=== PATIENT | male | born 1995 | race Caucasian/White ===

== ENCOUNTER 2017-07-06 14:00 | Emergency (ER) | payer OTHER ==
--- NOTE | 2017-07-06 14:06 | EDPHY ---
H & P Source: Patient Exam Limitations: No limitations Time Seen by Provider: 07/06/17 14:05 HPI/ROS: HPI: This is a 21-year-old male who presents with Chief Complaint: M1 hold Location: psych Quality: Delusions, paranoia Duration: Today Signs and Symptoms: + auditory and visual command hallucinations, no suicidal ideation with a plan, no homicidal ideation, + paranoid, + poor attention span, + labile mood Timing: Acute Severity: Moderate to severe Context: Patient presents with [facility] on M1 hold taken out by mother to became concerned today with her son's behavior as he was acting out of character, having delusions, aggressive. Patient admits to me that he is having auditory and visual hallucination, he feels like people are watching him and following him. He reports that the voices ahead will not stop unless he smokes marijuana in large amounts. He admits that he asked his mother for money today in order to obtain more marijuana and she would not give it to him so he became angry with her started shouting at her. Patient denies any previous psychiatric hospitalizations or diagnoses. Admits to smoking marijuana daily but no other recreational drug use. Modifying Factors: None Comment: ROS: see HPI Constitutional: No fever, no chills, no weight loss Eyes: No blurred vision Respiratory: No shortness of breath, no cough Cardiovascular: No chest pain Gastrointestinal: No nausea, no vomiting, no diarrhea Genitourinary: No dysuria Extremities: No myalgias Neurologic: No weakness, no numbness Skin: No rashes Hematologic: No bruising, no bleeding MEDICAL/SURGICAL/SOCIAL HISTORY: Medical history: Generally healthy. Does not take any regular medications. Surgical history: Barry teeth removal, foot surgery Social history: Lives with his mother CONSTITUTIONAL: Overweight well-appearing young adult male, awake and alert, no obvious distress HEENT: Atraumatic and normocephalic, PERRL, EOMI. Tympanic membranes clear. Oropharynx clear, no exudate and moist pink mucosa. Airway patent. No lymphadenopathy. No meningismus. Cardiovascular: Normal S1/S2, regular rate, regular rhythm, without murmur rub or gallop. PULMONARY/CHEST: Symmetrical and nontender. Clear to auscultation bilaterally. Good air movement. No accessory muscle usage. ABDOMEN: Soft, nondistended, nontender, no rebound, no guarding, no peritoneal signs, no masses or organomegaly. No CVAT. EXTREMITIES: 2/2 pulses, strength 5/5, no deformities, no clubbing, no cyanosis or edema. NEUROLOGICAL: no focal neuro deficits. GCS 15. SKIN: Warm and dry, no erythema. no rash. Good capillary refill. PSYCH: Poor eye contact, + flight of ideas, tangential disorganized thought process, poor insight and judgment, + auditory and visual command hallucinations , no suicidal ideation with a plan, no homicidal ideation, + paranoid (Erin Reeder) Constitutional: Initial Vital Signs Temperature (C) 36.7 C 07/06/17 14:00 Heart Rate 92 07/06/17 14:00 Respiratory Rate 18 07/06/17 14:00 Blood Pressure 117/87 H 07/06/17 14:00 O2 Sat (%) 99 07/06/17 14:00 O2 Delivery Mode Room Air Allergies/Adverse Reactions: No Known Allergies Allergy (Unverified 07/06/17 14:18) Home Medications: Medication Instructions Recorded NK [No Known Home Meds] 07/06/17 Medical Decision Making ED Course/Re-evaluation: 1410: Placed on M1 hold by [facility] upon arrival. Labs and UDS ordered. Given Zyprexa 10 mg. 1500: Labs and UDS reviewed and completely unremarkable. Medically clear for mental health evaluation. This patient was seen under the supervision of my primary supervising physician. I evaluated care for this patient independently. Discussed this patient with Dr. Russo did not see the patient. 1650: Reassessed patient. Sleeping soundly. 1700: End of Shift. Signed over to Dr. Russo pending mental health evaluation and final disposition. (Erin Reeder) 11:30 p.m. patient has been evaluated and be admitted to [address] [place] [address]. She is on a hold. Care transferred to Dr. Basil Muhammad. (Vignesh Sheikh) 6997: Patient has been accepted at [facility] By Dr. Brooks. EMTALA filled out. Appropriate transfer be set up (Basil Muhammad) Differential Diagnosis: Differential diagnosis includes but is not limited to schizoaffective disorder, schizophrenia, delusional disorder, depression, intoxication. (Erin Reeder) - Data Points Laboratory Results: Laboratory Results 07/06/17 14:05 07/06/17 14:05 Medications Given: Discontinued Medications Olanzapine (Zyprexa Zydis) 10 mg PO EDNOW ONE Stop: 07/06/17 14:14 Last Admin: 07/06/17 18:02 Dose: Not Given Departure - Departure Disposition: Other Psych, Not [facility] Clinical Impression: Marijuana smoker, continuous, Delusional disorder, Paranoia (psychosis) Condition: Fair Referrals: NONE *PRIMARY CARE P,. [Primary Care Provider] - As per Instructions
[2017-07-06] MEDS ORDERED: OLANZapine DISINTEGR 10 MG TAB PO ONE (14:13)
[2017-07-06 14:16] LABS: PLATELET COUNT 232 10^3/uL (150-400)
[2017-07-06 18:07] VITALS: TEMP 98.6
[2017-07-07 05:34] VITALS: BP 118/82; PULSE 72; RESP 16; O2SAT 98
== END 2017-07-07 06:14 ==
DX: F22 Delusional disorders (principal); F17.290 Nicotine dependence, other tobacco product, uncomplicated
CPT/HCPCS: 80305; G0480